=== PATIENT | male | born 1990 | race Caucasian/White ===

== ENCOUNTER 2020-09-07 21:36 | Emergency (ER) | payer OTHER, SELFPAY ==
--- NOTE | ~2020-09-07 | CT_ITS ---
EXAMINATION: CT abdomen pelvis w con DATE: 09/07/2020 23:31 INDICATION: Mid abdominal pain. TECHNIQUE: Computed tomography (CT) of the abdomen and pelvis was performed with 100 mL Omnipaque 350 intravenous contrast. Automated exposure control and iterative reconstruction technique were employe d. The dose-length product was 375.32 mGy-cm. COMPARISON: None. FINDINGS: The visualized portions of the lung bases are clear without pneumonia or pleural effusion. The heart size is normal. No pericardial effusion. There is a small sliding hiatal hernia. The liver, gallbladder, spleen, pancreas, adrenal glands, and left kidney are normal. There is a 7 mm cyst in r ight kidney. There are small bilateral inguinal hernias containing fat. The appendix is dilated to 11 mm and contains appendicoliths. There is fat stranding around the appendix. There is a small umbilic al hernia containing fat. There are no pathologically enlarged lymph nodes. There is no free intraper itoneal fluid. There is mild thoracolumbar spondylosis. IMPRESSION: 1. Acute appendicitis. Reviewed, dictated and finalized at location A. IMPRESSION: 1. Acute appendicitis.
[2020-09-07 21:40] VITALS: BP 137/82; PULSE 74; RESP 17; TEMP 36.8; O2SAT 100
[2020-09-07 22:06] LABS: Add Urine Microscopic? NO; Appearance Urine Clear (Clear); Bilirubin Urine Negative (Negative); Blood Urine Negative (Negative); Color Urine Yellow (Yellow); Glucose Urine UA Negative (Negative); Ketones Urine Negative (Negative); Leukocyte Esterase Ur Negative LEU/UL (Negative); Nitrate Urine Negative (Negative); Protein Urine Negative (Negative); Specific Grav Ur 1.025 (1.010-1.020); Urobilinogen Urine 0.2 mg/dL (0.2-1.0)
[2020-09-07 22:07] LABS: Basophils Absolute Auto 0.03 K/mm3 (0.00-0.10); Basophils Percent Auto 0.3 % (0.0-1.0); Eosinophils Absolute Auto 0.22 K/mm3 (0.02-0.50); Eosinophils Percent Auto 1.9 % (1.0-6.0); Hematocrit 43.7 % (40.0-54.0); Hemoglobin 14.8 g/dL (14.0-18.0); Immature Granulocyte Absolute 0.04 K/mm3 (0.00-0.00); Immature Granulocyte Percent A 0.3 % (0.0-0.0); Lymphocytes Absolute Auto 3.04 K/mm3 (1.10-4.50); Lymphocytes Percent Auto 26.4 % (18.0-42.0); Mean Corpuscular HGB Conc 33.9 g/dL (32.0-36.0); Mean Corpuscular Hemoglobin 30.4 pg (27.0-31.0); Mean Corpuscular Volume 89.7 fL (78.0-102.0); Mean Platelet Volume 9.3 fl (8.7-11.0); Monocytes Absolute Auto 0.69 K/mm3 (0.10-0.90); Neutrophils Absolute Auto 7.5 K/mm3 (1.7-7.2); Neutrophils Percent Auto 65.1 % (50.0-70.0); Platelet Count Result 238 K/mm3 (150-420); Red Blood Count 4.87 M/mm3 (4.70-6.10); Red Cell Distribution Width 12.6 % (11.6-14.4); White Blood Count 11.5 K/mm3 (4.8-10.8)
[2020-09-07] MEDS: MAG HYDROX/ALUMINUM HYD/SIMETH 30 ML, PHENobarb/HYOSCY/ATROPINE/SCOP 32.4 MG, LIDOCAINE... PO (22:12)
--- NOTE | 2020-09-07 22:17 | ED.GENADULT ---
HPI - General Adult General Chief complaint: Abdominal Pain Stated complaint: real bad stomach ache Source: patient Mode of arrival: ambulatory Limitations: no limitations History of Present Illness HPI narrative: Asa is a previously healthy 30M with no PMH that presented to the ED with abdominal pain. He had cramping abdominal pain that began after he drank some coffee at 1100. During the day he hunted and the pain began worse. It does not radiate. There is some nausea but no vomiting or diarrhea. His last BM was also around 1100 today. No CP, SOB, fevers, chills or trauma to the area. Related Data Home Medications Medication Instructions Recorded Confirmed No Home Medications 09/07/20 09/07/20 Allergies Allergy/AdvReac Type Severity Reaction Status Date / Time Penicillins Allergy Itching Verified 09/07/20 21:48 Sulfa (Sulfonamide Allergy Itching Verified 09/07/20 21:48 Antibiotics) Review of Systems Constitutional: Constitutional: Reports no additional constitutional complaints Eyes: Eyes: Reports no additional eye complaints ENT: Reports system reviewed and no additional complaints, except as documented Cardiovascular: Cardiovascular: Reports no additional cardiovascular complaints Respiratory: Respiratory: Reports no additional respiratory complaints Gastrointestinal: Gastrointestinal: Reports as per HPI Genitourinary: Genitourinary: Reports no additional male genitourinary complaints Musculoskeletal: Musculoskeletal: Reports no additional musculoskeletal complaints Integumentary/Breasts: Skin/Breast: Reports system reviewed and no additional complaints, except as docu Neurologic: Reports system reviewed and no additional complaints, except as documented Psychiatric: Psychiatric: Reports no additional psychiatric complaints Endocrine: Endocrine: Reports no additional endocrine complaints Hematologic/Lymphatic: Hematologic/Lymphatic: Reports no additional hematologic/lymphatic complaints Allergic/Immunologic: Allergic/Immunologic: Reports no additional allergic/immunologic complaints Exam Const: General: alert Orientation/consciousness: patient oriented x3 Limitations: No altered mental status Other: mild distress HENMT: Head: normal to inspection Other: atraumatic. Eyes: Conjunctivae: conjunctivae normal Pupils: Equal, round and reactive pupils present Neck: Neck: normal visual inspection Chest: Chest palpation & inspection: normal inspection of the chest Resp: Effort & Inspection: normal respiratory effort Auscultation: clear to auscultation bilaterally Cardio: Rate: regular rate Rhythm: regular rhythm Heart sounds: no murmurs GI: Other: TTP over the umbilical region and the LLQ. No guarding or rebound tenderness. Mild pain with right hip flexion. Negative psoas sign, negative cruz sign. Diminished bowel sounds but still present. Back/Spine/Pelvis: Back: no CVA tenderness Skin: General skin exam: normal color Rashes: no rashes Neuro: General: patient oriented x3 and moves all extremities Extrem: General: normal to inspection Psych: Mental Status: mental status grossly normal Course Course Emergency Course: Asa was evaluated. Ordered labs and a GI cocktail. GI cocktail did not help his pain. As he had abdominal pain, positive obturator sign, and leukocytosis we discussed the risks and benefits of a CT scan including radiation exposure vs. better diagnosis and he opted to get the CT scan. CT scan showed dilated appendix measuring 10mm within the pedicle with an adjacent stranding suggesting acute appendicitis. [place] transfer center was contacted at [phone]. Dr. Salas called back at [phone]. He recommended zosyn and transfer to [place] for surgical care. Vital Signs Vital signs: Vital Signs Temperature 98.2 F 09/07/20 21:40 Pulse Rate 74 09/07/20 21:40 Respiratory Rate 17 09/07/20 21:40 Blood Pressure 137/82 09/07/20 21:40 Pulse Oxime
[2020-09-07 22:24] LABS: Alanine Aminotransferase 29 U/L (16-63); Albumin Level 4.2 g/dL (3.4-5.0); Alkaline Phosphatase 69 U/L (46-116); Anion Gap 7 mmol/L (8-16); Aspartate Amino Transferase 15 U/L (15-37); Bilirubin,Total 0.3 mg/dL (0.00-1.00); Blood Urea Nitrogen 14 mg/dL (7-18); Calcium 8.8 mg/dL (8.5-10.1); Carbon Dioxide 29 mmol/L (21-32); Chloride 104 mmol/L (98-108); Estimated Glomerular Filt Rate > 60; Glucose 85 mg/dL (70-99); Lipase 122 U/L (73-393); Osmolality Calculated 289 mOsm/kg (285-295); Potassium 3.6 mmol/L (3.5-5.1); Sodium 140 mmol/L (136-145); Total Protein 7.6 g/dL (6.4-8.2)
--- NOTE | 2020-09-08 00:28 | PC.NURSE ---
2300 pt resting per cot 2330 pt on phone.
[2020-09-08 00:32] VITALS: BP 122/77; PULSE 92; RESP 20; TEMP 36.9; O2SAT 98
== END 2020-09-08 00:47 | disposition short-term general hospital (02) ==
PROVIDERS: Emergency Provider Family Medicine; PCP Internal Medicine
DX: K35.80 Unspecified acute appendicitis (principal)
CPT/HCPCS: 36415; 74177; 80053; 81003; 83690; 85025; 93005; 96365; 99284; 99285; A9270; J2543; Q9965

== ENCOUNTER 2020-09-08 01:13 | Observation (INO) | payer OTHER, SELFPAY ==
[2020-09-08] VITALS (13 sets, daily range): BP systolic 106–137; BP diastolic 52–84; PULSE 53–87; RESP 14–20; TEMP 36.3–36.8; O2SAT 94–100; BMI 28.0
--- NOTE | 2020-09-08 01:19 | ADMGEN ---
This patient, Jefry Vasquez, was admitted to [facility] Surg Room 321-01. Patient/family oriented to hospital policies and general routines including ID bracelet, bed and alarms, visiting hours, pain management, procedures, bathroom and other care routines, personal items, smoking policy, room service/diet, and visiting hours. Information on how to activate the Rapid Response Team has been discussed. Patient/Family are encouraged to report perceived risks to care and to ask questions if they do not understand what they are told or what they should do.
[2020-09-08] MEDS: MORPHINE SULFATE (*CRX) 4 MG/ML INJ IV PUSH (02:13)
[2020-09-08] MEDS: LACTATED RINGERS 1,000 ML 125 ML IV CONT (02:27)
[2020-09-08] MEDS: diphenhydrAMINE HCl INJ 50 MG/ML VIAL 25 MG IV PUSH (03:10)
[2020-09-08] MEDS: metroNIDAZOLE 500 MG/ISO 100ML 500 MG/100 ML BAG 100 MG IVPB (05:12)
--- NOTE | 2020-09-08 06:24 | WPDANESEPP ---
Anes - Eval Pre Procedure Procedure: Operation Date: 09/08/20 07:30 Proposed Procedures p Laparoscopic Appendectomy - Arley Gooden DO Date/Time: 09/08/20 06:24 Surgeon: derek Pre Op Diagnosis: Acute Appendicitis Patient Data Age: 30 Gender: M Height: 1.7 m Weight: 81.4 kg Last Vital Signs Temp 36.8 C 09/08/20 01:10 Pulse 63 09/08/20 01:10 Resp 16 09/08/20 01:10 BP 137/72 09/08/20 01:10 Pulse Ox 100 09/08/20 01:10 Allergies Allergy/AdvReac Type Severity Reaction Status Date / Time Penicillins Allergy Intermediate Rash Verified 09/08/20 02:51 Sulfa (Sulfonamide Allergy Itching Verified 09/07/20 21:48 Antibiotics) Home Medications Medication Instructions Recorded Confirmed Type No Home Medications 09/07/20 09/08/20 History Patient hx anesthesia problems: none Family hx anesthesia problems: none PMFSH Family History Family History (Updated 09/08/20 @ 01:29 by Garo Pandey, LEONILA) Other Diabetes mellitus Father Hypertension Grandparent Cancer Mother Cancer Social History Social History (Updated 09/08/20 @ 01:31 by Garo Pandey, LEONILA) Smoking status: Never smoker Alcohol intake: current Drinks per week: 2 Substance use: never Substance use type: does not use Living arrangements: alone Occupation/Education: occupation Gender identity (if verbalized by the patient): Male Sexual Orientation (if Verbalized by the Patient): Straight or Heterosexual Spiritual care concerns: No Agree to blood products: Yes Exam Day of Procedure 09/08/20 06:24
[2020-09-08] MEDS: LACTATED RINGERS 1,000 ML 30 ML IV CONT ×2 (07:30→08:45)
--- NOTE | 2020-09-08 07:36 | WPDANESEFPP ---
Anes - Eval Final PreProcedure Day of Procedure 09/08/20 07:36 Patient weight: overweight Heart: regular rate and rhythm Lungs: clear to auscultation Airway: Mallampati scale class II Neurological: alert and oriented Last oral intake: >/= 8 hours ASA classification: II Emergent: no Anesthetic plan: proceed Anesthesia type and monitoring: general ETT and standard monitoring Informed Consent: The patient's anesthetic plan and its attendant risks and benefits were discussed with the patient/family/POA. Questions were solicited and answers provided to the satisfaction of the patient/family/POA.
--- NOTE | 2020-09-08 07:37 | PM.IMHP ---
H&P: HPI History of Present Illness Date/Time: 09/08/20 07:37 Chief complaint: Right lower quadrant pain Narrative: Jefry Vasquez is a 30 year old male who presented to [place] overnight with right lower quadrant abdominal pain. He began with periumbilical pain yesterday morning and pain worsened throughout the day and eventually localized to the right lower quadrant. He has had a slight bit of nausea but no vomiting. Denies any fevers or chills. Denies any change in bowel habits. He has never had any symptoms like this before. After discussing with the emergency department physicians overnight, he was transferred to [facility] for further treatment. Since being transferred he has been hemodynamically stable and he states the pain is tolerable. Review of Systems Review of Systems: All systems reviewed & are unremarkable except as noted in HPI and below Constitutional: Constitutional: Denies chills and Denies fever(s) Eyes: Eyes: Denies change in vision ENT: Denies hearing loss, Denies neck pain and Denies sore throat Cardiovascular: Cardiovascular: Denies chest pain and Denies dyspnea Respiratory: Respiratory: Denies cough, Denies dyspnea and Denies wheezing Gastrointestinal: Gastrointestinal: Reports as per HPI Genitourinary: Genitourinary: Denies hematuria and Denies dysuria Musculoskeletal: Musculoskeletal: Denies arthralgias, Denies joint swelling and Denies neck pain Allergic/Immunologic: Allergic/Immunologic: Denies wheezing PMFSH Family History Family History Other Diabetes mellitus Father Hypertension Grandparent Cancer Mother Cancer Social History Social History Smoking status: Never smoker Alcohol intake: current Drinks per week: 2 Substance use: never Substance use type: does not use Living arrangements: alone Occupation/Education: occupation Gender identity (if verbalized by the patient): Male Sexual Orientation (if Verbalized by the Patient): Straight or Heterosexual Spiritual care concerns: No Agree to blood products: Yes Meds Home Medications and Allergies Home Medications Medication Instructions Recorded Confirmed Type No Home Medications 09/07/20 09/08/20 History Allergies Allergy/AdvReac Type Severity Reaction Status Date / Time Penicillins Allergy Intermediate Rash Verified 09/08/20 02:51 Sulfa (Sulfonamide Allergy Itching Verified 09/07/20 21:48 Antibiotics) Vital Signs Vital Signs - 24 hr 09/08/20 01:10 09/08/20 06:00 Temperature 36.8 C 36.6 C Pulse Rate 63 53 L Respiratory Rate 16 16 Blood Pressure 137/72 106/63 Pulse Oximetry 100 100 Exam Const: General: alert; No acute distress Orientation/consciousness: patient oriented x3 Limitations: no limitations HENMT: Head: normocephalic and atraumatic Ears: hearing grossly normal bilaterally General nose exam: Normal external nose present and Normal nares present Mouth: Yes Normal oral and palatal mucosa present and Yes moist mucous membranes Eyes: General: appearance normal, both eyes and all related structures Conjunctivae: conjunctivae normal Sclera: sclerae normal Pupils: Equal, round and reactive pupils present EOM: EOMs intact bilaterally Neck: Neck: normal visual inspection, full ROM, no lymphadenopathy, supple and no JVD Lymphatic: no lymphadenopathy noted Chest: Chest palpation & inspection: normal inspection of the chest Resp: Effort & Inspection: normal respiratory effort and able to speak in complete sentences Auscultation: clear to auscultation bilaterally Percussion: percussion normal Cardio: Jugular venous distension: no JVD Rate: regular rate Rhythm: regular rhythm Heart sounds: S1 normal heart sound present and S2 normal heart sound present Peripheral pulses: Peripheral pulses 2+ throughout GI: Inspection
--- NOTE | 2020-09-08 07:43 | WPDHPUPDATE1 ---
History and Physical Update Update Date/Time: 09/08/20 07:43 History and Physical has been reviewed, including an updated exam of the patient. There are NO changes in the patient's condition. Risks, benefits, and alternatives have been discussed and questions answered. Patient agrees to proceed with procedure.
--- NOTE | 2020-09-08 07:47 | PC.NURSE ---
Patient down to pre-op at 0730.
--- NOTE | 2020-09-08 08:37 | PM.PROC ---
Procedure Note - Detailed Date of procedure: 09/08/20 Pre-op diagnosis: Acute appendicitis, umbilical hernia Post-op diagnosis: same Procedure performed: 1. Laparoscopic Appendectomy 2. Umbilical hernia repair Description of procedure: Procedure as well as risks, benefits, and alternatives were explained to the patient. The patient agreed to proceed. Written consent was obtained and placed in chart prior to procedure. The patient was brought back to surgical suite. He was placed supine on operating table. Time-out was done to confirm the patient and procedure. The patient was then intubated by the Anesthesia Department. His abdomen was prepped and draped in sterile fashion using chlorhexidine prep. A 12 mm incision was made at the inferior portion of the umbilicus. The umbilical hernia was identified and the hernia sac was carefully dissected free using electrocautery. The hernia sac was excised and discarded. A 10 mm hernia was noted at the umbilicus. A 12 mm trocar was then inserted directly through the hernia defect, and carbon dioxide insufflation was used to create a pneumoperitoneum. The camera was inserted and the abdomen was inspected. No immediate abnormalities were identified. The patient was then placed in slight Trendelenburg position and rotated to the left. A 5 mm incision was made in the suprapubic region in midline and a 5 mm trocar was inserted under direct visualization. A 5 mm incision was made in the left lower quadrant and a 5 mm trocar was inserted under direct visualization. The right lower quadrant was carefully inspected. The cecum was identified and then this was traced back to the appendix. The appendix was identified and grasped at the mesoappendix and lifted anteriorly. Careful blunt dissection was carried out at the base of the appendix through the mesoappendix using a [place] grasper. An Endo-BRAD 45 mm blue load stapler was then advanced across the base of the appendix and clamped and fired. A white reload was then clamped across the mesoappendix and fired. This freed up our appendix completely. It was then placed in an EndoCatch bag and removed through the left lower quadrant port. The staple lines were then inspected. Hemostasis appeared adequate and the staple lines appeared secure. The area was then irrigated with sterile saline. The pelvis was then carefully inspected and irrigated with sterile saline as well and the remainder of the abdomen was carefully inspected. The patient was then flattened out in bed. One final inspection was made around the abdominal cavity and no other abnormalities were seen. The ports were then removed under direct visualization. The camera was removed and the pneumoperitoneum was released. The fascia around the umbilical hernia was then carefully freed up circumferentially using electrocautery. The hernia defect appeared to come together without tension. 0 Ethibond [id number]-pr-[id number] sutures were then placed to repair the hernia defect. A total of 3 sutures were placed vertically to adequately approximate the fascia. The repair was inspected and appeared secure. 0.5% bupivacaine with epinephrine was infiltrated locally around each of the incisions. The skin of the incisions was then approximated using 4-0 Monocryl subcuticular suture and Exofin glue was applied on top. The patient was then awakened from anesthesia, extubated, and transferred to Recovery. Anesthesia: GETA and local (0.5% bupivicaine with epi) Surgeon: Arley Gooden DO Estimated blood loss (mL): 20 Pathology: yes (Appendix) Complications: No immediate complications Condition: stable Disposition: floor Findings: This is a 30-year-old man who presented to [place] [facility] with complaints of right lower quadrant abdominal pain. Workup showed evidence of acute appendicitis. He was transferred to [facility] for further treatment. I reviewed the CT and patient does appear to have evidence
[2020-09-08] MEDS: KETOROLAC 30 MG/ML VIAL (*BKC) 15 MG IV PUSH (08:38)
[2020-09-08] MEDS: BUPIVACAINE/EPINEPHRINE 0.5% 10 ML VIAL 30 ML INFILTRATE (08:39)
[2020-09-08] MEDS: ONDANSETRON INJ 4 MG/2 ML VIAL IV PUSH (09:15)
--- NOTE | 2020-09-08 10:25 | PC.NURSE ---
Patient returned to med/surg from PACU at 0950.
[2020-09-08] MEDS: LACTATED RINGERS 1,000 ML 100 ML IV CONT (10:28)
--- NOTE | 2020-09-08 11:28 | PM.DS ---
DS: Admitting Diagnosis Admitting Diagnosis Admitting Diagnosis: Acute appendicitis, umbilical hernia DS: Discharge Diagnosis Discharge Diagnosis (1) Acute appendicitis: Qualifiers: Acute appendicitis type: with localized peritonitis Appendicitis abscess presence: without abscess Appendicitis gangrene presence: without gangrene Appendicitis perforation presence: without perforation Qualified Code(s): K35.30 - Acute appendicitis with localized peritonitis, without perforation or gangrene Code(s): K35.80 - Unspecified acute appendicitis Status: Acute (2) Umbilical hernia without obstruction and without gangrene: Code(s): K42.9 - Umbilical hernia without obstruction or gangrene Status: Acute DS: Summary Hospital Course Reason for hospitalization: Acute appendicitis Hospital Course: This is a 30-year-old man who was transferred from [facility] with findings of acute appendicitis. He had been experiencing pain since yesterday morning. CT in the emergency department overnight showed evidence of acute appendicitis. He was transferred for further treatment. He was taken for urgent laparoscopic appendectomy and umbilical hernia repair this morning and was also started on Levaquin and Flagyl. Surgery was uncomplicated and he was returned to the surgical floor postoperatively. His diet and activity were advanced as tolerated. He was discharged home once pain was controlled, vitals were stable, he was tolerating a diet, and he was ambulating in the halls. Status at Discharge Functional status at discharge: independent ambulation Overall status at discharge: patient is progressing back to baseline Time Spent with Patient Time attestation: Total time spent providing and/or coordinating discharge services: Time spent: Less than 30 minutes DS: Data Data Completed and Pending Pending studies at discharge: Pending at discharge 09/08/20 08:12 Surgical [PTH] Routine Discharge Plan Discharge Attending physician on discharge: Arley Rodriguez Discharging Clinician: Arley Rodriguez Patient Disposition: Home, Self-Care Activity: other - see discharge instructions Diet: other - see discharge instructions Wound Care Instructions: other - see discharge instructions Discharge Instructions: DISCHARGE INSTRUCTION SHEET FOR HERNIA, GALLBLADDER AND APPENDIX SURGERIES DR. RODRIGUEZ PATIENT TO TAKE HOME 1. May shower in 24 hours, no soaking in bath x 2weeks. 2. Call office for: Wound increasingly painful or bleeding Vomiting Fever of greater than 101 degrees 3. If no bowel movement for three days, take 1 oz. (30 ml) Milk of Magnesia or MiraLax 17g 1 to 2 times daily. 4. No heavy lifting > 10-15 pounds x weeks for hernia repairs and 2 weeks for laparoscopic cholecystectomy or appendectomy. 5. No driving for 3 days or while taking narcotic pain medications. 6. Ice to surgical site for 48 hours (30 min on, then 30 min off). 7. Up walking 10-30 minutes three times per day. 8. Resume previous home medications. 9. Follow-up 10-14 days in office for wound check or as previously scheduled. ([phone]) 10. Oral pain medications prescription to be sent to pharmacy. Take Tylenol 500mg every 6 hours and Ibuprofen 600mg every 6 hours for the first 2 days, then as needed. 11. NUTRITION: Start out by drinking fluids and increase your diet as tolerated. If you experience nausea, try dry toast, crackers, and 7-UP. If nausea or vomiting persists, contact your surgeon?s office. 12. Gallbladders-Low Fat Diet for 2 weeks (send care note of low fat diet) 13. Inguinal Hernias-wear scrotal support for 48 hours 14. Abdominal Hernias-if sent home with abdominal binder, wear for the first 2 weeks (may remove to shower or at night to sleep).
[2020-09-08] MEDS: HYDROcodone/acetaminophen (*CRX) 5-325 MG TABLET 1 TAB PO (12:43)
== END 2020-09-08 14:55 | disposition home or self-care (01) ==
PROVIDERS: Admitting Provider Surgery; PCP Internal Medicine; Visit Provider Surgery
PROC: 0DTJ4ZZ Resection of Appendix, Percutaneous Endoscopic Approach (ICD-10-PCS; CPT 44970; principal; 2020-09-08 07:30)
PROC: (CPT 44970; 2020-09-08 07:30)
DX: K35.30 Acute appendicitis with localized peritonitis, without perforation or gangrene (principal); K42.9 Umbilical hernia without obstruction or gangrene
CPT/HCPCS: 44970; 88304; 96361; 96365; 96375; A9270; G0378; J0131; J0330; J1100; J1170; J1200; J1885; J1956; J2250; J2270; J2405; J2704; J2710; J3010; J7120

== ENCOUNTER 2021-11-11 15:50 | Outpatient (CLI) | payer OTHER, SELFPAY ==
[2021-11-11 16:57] LABS: Influenza A QL RT-PCR Negative (Negative); Influenza B QL RT-PCR Negative (Negative); SARS-CoV-2 RNA PCR Negative (Negative)
== END 2021-11-11 15:51 | disposition home or self-care (01) ==
LOC: CHSLAB 15:53
PROVIDERS: PCP Internal Medicine; Visit Provider Nurse Practitioner Family
DX: J06.9 Acute upper respiratory infection, unspecified (principal); R05.9 Cough, unspecified; Z20.822 Contact with and (suspected) exposure to COVID-19
CPT/HCPCS: 87502; C9803; U0003; U0005